=== PATIENT | male | born 1985 | race American Indian/Alaskan Native ===

== ENCOUNTER 2016-12-21 08:57 | Emergency (ER) | payer MEDICAID ==
[~2016-12-21] VITALS: Ht 162.6 cm; Wt 99.8 kg
[2016-12-21 09:20] VITALS: BP 119/79; PULSE 73; RESP 17; TEMP 97.4; O2SAT 96
[2016-12-21] MEDS ORDERED: IBUPROFEN 800 MG TABLET PO ONE (10:00)
[2016-12-21 11:05] VITALS: BP 120/78; PULSE 76; RESP 16; TEMP 97.4; O2SAT 97
== END 2016-12-21 11:05 | disposition home or self-care (01) ==
LOC: SED 08:57
DX: S63.501A Unspecified sprain of right wrist, initial encounter (principal); V89.9XXA Person injured in unspecified vehicle accident, initial encounter; Y93.89 Activity, other specified; Y92.89 Other specified places as the place of occurrence of the external cause; Y99.8 Other external cause status
CPT/HCPCS: 99284

== ENCOUNTER 2017-06-04 19:00 | Emergency (ER) | payer MEDICAID ==
[~2017-06-04] VITALS: Ht 162.6 cm; Wt 95.3 kg
[2017-06-04 19:12] VITALS: BP_SYST 136
[2017-06-04 20:22] VITALS: BP_SYST 127
== END 2017-06-04 20:22 | disposition home or self-care (01) ==
LOC: SED 19:00
DX: J03.90 Acute tonsillitis, unspecified (principal); I10 Essential (primary) hypertension
CPT/HCPCS: 99283

== ENCOUNTER 2018-01-28 06:23 | Emergency (ER) | payer MEDICAID ==
[~2018-01-28] VITALS: Ht 162.6 cm; Wt 98.9 kg
[2018-01-28 06:40] VITALS: BP_SYST 114
[2018-01-28 07:23] VITALS: BP_SYST 118
== END 2018-01-28 07:23 | disposition home or self-care (01) ==
LOC: SED 06:23
DX: J20.9 Acute bronchitis, unspecified (principal)
CPT/HCPCS: 99283

== ENCOUNTER 2018-02-15 15:49 | Emergency (ER) | payer MEDICAID ==
[~2018-02-15] VITALS: Ht 162.6 cm; Wt 98.9 kg
[2018-02-15 15:58] VITALS: BP_SYST 142
--- NOTE | 2018-02-15 16:08 | NUR ---
Patient to ER bed 6 to gown for evaluation. Side rails up. Report given to Frandy WARD.
--- NOTE | 2018-02-15 16:10 | NUR ---
Pt brought by self,A&OX4 , pt c/o vomiting x 2 days, diarrhea, weakness, LUQ pain/tenderness 6/10,respirations even and unlabored, cap refill <3, VS WNL, no active nausea or vomiting noted,afebrile.
[2018-02-15] MEDS ORDERED: ONDANSETRON HCL 4 MG/2 ML VIAL IM ONE (16:30)
[2018-02-15] MEDS ORDERED: ALPRAZolam 0.25 MG TABLET PO ONE (16:30)
--- NOTE | 2018-02-15 16:30 | NUR ---
Dr Wayne at bedside examining patient
--- NOTE | 2018-02-15 17:08 | NUR ---
Pt on stable condition, VS WNL, family at bedside.
[2018-02-15 17:13] VITALS: BP_SYST 138
--- NOTE | 2018-02-15 17:15 | NUR ---
Patient given written and verbal discharge instructions and verbalizes understanding. ER MD discussed with patient the results and treatment provided. Patient in stable condition. ID arm band removed. Rx of Zofran given. Patient educated on pain management and to follow up with PMD. Pain Scale 2/10 tolerable for patient . Opportunity for questions provided and answered. Medication side effect fact sheet provided.
== END 2018-02-15 17:15 | disposition home or self-care (01) ==
LOC: SED 15:49
DX: R11.2 Nausea with vomiting, unspecified (principal); F12.10 Cannabis abuse, uncomplicated
CPT/HCPCS: 96372; 99283; J2405

== ENCOUNTER 2019-01-30 08:38 | Emergency (ER) | payer MEDICAID ==
[~2019-01-30] VITALS: Ht 162.6 cm; Wt 98.9 kg
[2019-01-30 08:45] VITALS: BP_SYST 129
--- NOTE | 2019-01-30 08:48 | NUR ---
Patient to ER bed 5 to gown for evaluation. Side rails up. Report given to Ximena WARD.
--- NOTE | 2019-01-30 08:59 | NUR ---
Patient presented to ER with c/o cough. Patient ambulatory to ER, A&Ox4, afebrile, nausea, emesis x1, denied diarrhea, denies pain. Patient states cough started , he treated with nyquil, today cough continues with mucus emesis today. Patient denies health history
--- NOTE | 2019-01-30 09:06 | NUR ---
ER Dr. Song at bedside examining patient.
[2019-01-30 10:45] VITALS: BP_SYST 129
--- NOTE | 2019-01-30 10:45 | NUR ---
Patient given written and verbal discharge instructions and verbalizes understanding. ER MD discussed with patient the results and treatment provided. Patient in stable condition. ID arm band removed. Rx of Tessalon perles & Hycodan syrupgiven. Patient educated on pain management and to follow up with PMD. Pain Scale 0/10. Opportunity for questions provided and answered. Medication side effect fact sheet provided.
== END 2019-01-30 10:45 | disposition home or self-care (01) ==
LOC: SED 08:38
DX: J11.1 Influenza due to unidentified influenza virus with other respiratory manifestations (principal); R03.0 Elevated blood-pressure reading, without diagnosis of hypertension
CPT/HCPCS: 71045; 99283

== ENCOUNTER 2019-12-21 12:45 | Emergency (ER) | payer MEDICAID ==
[~2019-12-21] VITALS: Ht 162.6 cm; Wt 84.4 kg
[2019-12-21 12:45] VITALS: BP_SYST 139
--- NOTE | 2019-12-21 12:45 | NUR ---
BROUGHT BACK TO BED #3 AND TRIAGED. REPORT GIVEN TO ROMMEL
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
--- NOTE | 2019-12-21 13:10 | NUR ---
ER Dr. Valerio at bedside examining patient.
--- NOTE | 2019-12-21 13:25 | NUR ---
Patient given written and verbal discharge instructions and verbalizes understanding. ER MD discussed with patient the results and treatment provided. Patient in stable condition. ID arm band removed. No Rx given. Patient educated on pain management and to follow up with PMD. Pain Scale 3/10. Opportunity for questions provided and answered. Medication side effect fact sheet provided.
== END 2019-12-21 13:25 | disposition home or self-care (01) ==
LOC: SED 12:45
DX: S30.1XXA Contusion of abdominal wall, initial encounter (principal); W34.09XA Accidental discharge from other specified firearms, initial encounter; Y93.89 Activity, other specified; Y92.89 Other specified places as the place of occurrence of the external cause; Y99.8 Other external cause status
CPT/HCPCS: 99281